=== PATIENT | male | born 1985 | race Caucasian/White ===

== ENCOUNTER 2017-07-05 13:32 | Emergency (ER) | payer SELFPAY ==
[~2017-07-05 13:32] MED LIST: ACET325 PO; Cleocin HCl300 MG PO; DIPH50 PO; Naprosyn500 MG PO; Veetids 500500 MG PO
== END 2017-07-05 15:21 | disposition left against medical advice (07) ==
LOC: ER 13:32
DX: Z53.21 Procedure and treatment not carried out due to patient leaving prior to being seen by health care provider (principal)